=== PATIENT | male | born 1955 | race Caucasian/White ===

== ENCOUNTER → 2023-08-14 12:05 | Outpatient (REF) | payer MEDICARE, OTHER, SELFPAY | LOC: RAD 12:05 | PROVIDERS: ATTENDING PHYSICIAN Internal Medicine | DX: S76.311D Strain of muscle, fascia and tendon of the posterior muscle group at thigh level, right thigh, subsequent encounter (principal); Z01.818 Encounter for other preprocedural examination | CPT/HCPCS: 71046 ==

== ENCOUNTER → 2024-01-14 09:35 | Outpatient (REF) | payer MEDICARE, OTHER, SELFPAY | LOC: RAD 09:35 | PROVIDERS: FAMILY PHYSICIAN Internal Medicine | DX: M24.151 Other articular cartilage disorders, right hip (principal); M24.512 Contracture, left shoulder | CPT/HCPCS: 73523 ==